=== PATIENT | female | born 1980 | race Two or more races ===

== ENCOUNTER 2017-08-18 20:43 | Emergency (ER) | payer BC, MEDICAID ==
[2016-09-06 10:01] VITALS: Ht 152.4 cm; Wt 97.5 kg
[~2017-08-18] VITALS: Ht 152.4 cm; Wt 97.5 kg
[~2017-08-18 20:43] MED LIST: ACET-1718 PO; AZIT500T47 PO; CALC-748 PO; CEP250 PO; CIPR-344 PO; DIV500ER PO; HYDR-3503 PO; IBUP800T37 PO; KET10 PO; LEVE100047 PO; LEVE750T51 PO; LEVE750T74 PO; LOR5 PO; LOR5/325 PO; METR-1 PO; NITR-105 PO; ONDA4TAB PO; ONDA4TAB97 PO; PER PO; PHEN240S3 PO; PREN1COM5 PO; VAL250
--- NOTE | 2017-08-18 20:59 | ER Report ---
History and Physical Time Seen By MD: 20:59 HPI/ROS CHIEF COMPLAINT: Shortness of breath, dizziness HISTORY OF PRESENT ILLNESS: 37-year-old otherwise healthy female denies past medical history including hypercholesterolemia and smoking prior heart attack or stroke. Denies family history. She is here for chest pain and dyspnea 2 days associated with left leg pain without swelling. No recent trauma or surgery no estrogen replacement pills. No prior blood clots. She is also complaining of dizziness worse when she sits up or gets up out of bed and dry mouth has not noticed dark urine. REVIEW OF SYSTEMS: Constitutional: No fever, no chills. Eyes: No discharge. ENT: No sore throat. Cardiovascular: No palpitations Respiratory: No cough, no shortness of breath. Gastrointestinal: No abdominal pain, no vomiting. Genitourinary: No hematuria. Musculoskeletal: No back pain. Skin: No rashes. Neurological: No headache. Allergies: Coded Allergies: No Known Drug Allergies (Unverified , 07/14/16) Home Meds Active Scripts Oseltamivir Phosphate (TAMIFLU) 75 Mg Cap, 75 MG PO BID, #10 CAP 0 Refills Prov:SAMMY HAYES MD 08/18/17 Ibuprofen (IBUPROFEN) 800 Mg Tablet, 1 TAB PO Q8H, #30 TAB Take with food every 8 hours. Prov:PARMINDER ACHARYA MD 09/07/16 Reported Medications Levetiracetam (KEPPRA) 1,000 Mg Tablet, 1250 MG PO BID, TAB 09/05/16 Calcium/Vit B12/Fa/Pyridoxine (FOLIC ACID-VIT B6-VIT B12 TAB) 1 Each Tablet, 1 EACH PO QDAY 07/14/16 Levetiracetam (KEPPRA) 750 Mg Tablet, 1000 MG PO QDAY, TAB 07/14/16 Discontinued Reported Medications Prenat Vit Comb.10/Iron/Fa/Dha (VITAFOL-OB+DHA COMBO PACK) 1 Each Combo..pkg, 1 EACH PO 07/14/16 Discontinued Scripts Acetaminophen With Codeine # 3 (ACETAMINOPHEN-COD #3 TABLET) 1 Each Tablet, 1-2 EACH PO Q4H Y for PAIN, #30 TAB TAKE 1-2 TABLETS NEEDED FOR PAIN - NO CLOSER THAN EVERY 4 HOURS Prov:PARMINDER ACHARYA MD 09/07/16 Hx Smoking: No Smoking Status: Never Smoker Exposure to Second Hand Smoke?: Yes Hx Substance Use Disorder: No Hx Alcohol Use: Yes (COUPLE GLASSES A WINE 2 TIMES A MONTH) Constitutional Vital Sign - Last 24 Hours 08/18/17 08/18/17 08/18/17 08/18/17 21:02 21:13 21:14 21:28 Temp 98.3 Pulse 98 97 91 Resp 18 28 25 B/P (MAP) 137/88 127/89 (102) Pulse Ox 93 93 93 O2 Delivery Room Air 08/18/17 08/18/17 08/18/17 08/18/17 21:43 21:58 22:03 22:18 Pulse 98 99 94 102 Resp 26 15 19 Pulse Ox 92 95 93 08/18/17 08/18/17 08/18/17 08/18/17 22:22 22:33 22:48 23:00 Pulse 91 87 Resp 24 19 B/P (MAP) 121/76 (91) 130/70 (90) Pulse Ox 93 92 08/18/17 23:03 Pulse 86 Resp 14 Pulse Ox 95 Physical Exam General Appearance: The patient is alert, has no immediate need for airway protection and no signs of toxicity. Appears mildly drowsy Eyes: Pupils equal and round no pallor or injection. ENT, Mouth: Mucous membranes are dry Respiratory: There are no retractions, lungs are clear to auscultation. Cardiovascular: Regular rate and rhythm. No murmurs gallops or rubs she is slightly tachycardic Gastrointestinal: Abdomen is soft and non tender, no masses, bowel sounds normal. Neurological: Normal, dizziness upon sitting up for exam Skin: Warm and dry, no rashes. Musculoskeletal: Neck is supple non tender. Extremities are nontender, nonswollen and have full range of motion. No edema, symmetrical calf bilaterally to visualization, positive Homans sign left side only DIFFERENTIAL DIAGNOSIS: After history and physical exam differential diagnosis was considered for PE, DVT, ACS, influenza-like illness, pneumonia Medical Decision Making Data Points Result Diagram: 08/18/17210908/18/172109 Laboratory Hematology Test 08/18/17 00:00 08/18/17 21:10 08/18/17 21:18 08/18/17 23:44 Urine Color Yellow Urine Clarity Clear Urine pH 5.0 pH (4.8-9.5) Urine Specific [place] 1.018 Urine Protein Negative mg/dL (NEGATIVE) Urine Glucose (UA) Negative mg/dL (NEGATIVE) Urine Ketones Negative mg/dL (NEGATIVE) Urine Blood Negative (NEGATIVE) Urine Nitrite Negative (NEGATIVE) Urine Bilirubin Negative (NEGATIVE) Urine Urobilinogen Negative mg/dL (0.2-1.9) Urine Leukocyte Esterase Small (NEGATIVE) Urine RBC 1 /HPF (0-2/HPF) Urine WBC 6 /HPF (0-5/HPF) Urine Squamous Epithelial Cells Many /LPF (</=FEW) Urine Bacteria Negative /HPF (NONE-FEW) Urine Mucus None /HPF (NONE-FEW) Human Chorionic Gonadotropin, Qual Negative (NEGATIVE) Red Blood Count 5.00 M/uL (4.17-5.56) Mean Corpuscular Volume 84.3 fL (80.0-96.0) Mean Corpuscular Hemoglobin 29.0 pg (26.0-33.0) Mean Corpuscular Hemoglobin Concent 34.4 g/dL (32.0-36.0) Red Cell Distribution Width 12.8 % (11.5-14.5) Mean Platelet Volume 7.2 fL (7.2-11.1) Neutrophils (%) (Auto) 46.8 % (39.4-72.5) Lymphocytes (%) (Auto) 39.5 % (17.6-49.6) Monocytes (%) (Auto) 8.4 % (4.1-12.4) Eosinophils (%) (Auto) 4.3 % (0.4-6.7) Basophils (%) (Auto) 1.0 % (0.3-1.4) Nucleated RBC Relative Count (auto) 0.1 /100WBC Neutrophils # (Auto) 4.3 K/uL (2.0-7.4) Lymphocytes # (Auto) 3.6 K/uL (1.3-3.6) Monocytes # (Auto) 0.8 K/uL (0.3-1.0) Eosinophils # (Auto) 0.4 K/uL (0.0-0.5) Basophils # (Auto) 0.1 K/uL (0.0-0.1) Nucleated RBC Absolute Count (auto) 0.01 K/uL D-Dimer Quantitative (PE/DVT) < 0.27 ug/ml (0-0.50) Sodium Level 137 mmol/L (137-145) Potassium Level 3.9 mmol/L (3.5-5.0) Chloride Level 102 mmol/L (98-107) Carbon Dioxide Level 23 mmol/L (22-31) Blood Urea Nitrogen 19 mg/dl (7-18) Creatinine 1.00 mg/dl (0.52-1.04) Glomerular Filtration Rate Calc > 60.0 Random Glucose 102 mg/dl (75-110) Calcium Level 9.1 mg/dl (8.4-10.2) Total Bilirubin 0.4 mg/dl (0.2-1.3) Aspartate Amino Transf (AST/SGOT) 63 U/L (0-35) Alanine Aminotransferase (ALT/SGPT) 101 U/L (0-56) Alkaline Phosphatase 97 U/L (0-126) B-Type Natriuretic Peptide 6 pg/ml (0-100) Total Protein 7.8 gm/dl (6.3-8.2) Albumin 4.1 g/dl (3.5-5.0) Influenza Virus Type A (PCR) Negative (NEGATIVE) Influenza Virus Type B (PCR) Negative (NEGATIVE) Group A Streptococcus Screen Negative (NEGATIVE) Troponin I < 0.012 ng/ml Chemistry Test 08/18/17 00:00 08/18/17 21:10 08/18/17 21:18 08/18/17 23:44 Urine Color Yellow Urine Clarity Clear Urine pH 5.0 pH (4.8-9.5) Urine Specific [place] 1.018 Urine Protein Negative mg/dL (NEGATIVE) Urine Glucose (UA) Negative mg/dL (NEGATIVE) Urine Ketones Negative mg/dL (NEGATIVE) Urine Blood Negative (NEGATIVE) Urine Nitrite Negative (NEGATIVE) Urine Bilirubin Negative (NEGATIVE) Urine Urobilinogen Negative mg/dL (0.2-1.9) Urine Leukocyte Esterase Small (NEGATIVE) Urine RBC 1 /HPF (0-2/HPF) Urine WBC 6 /HPF (0-5/HPF) Urine Squamous Epithelial Cells Many /LPF (</=FEW) Urine Bacteria Negative /HPF (NONE-FEW) Urine Mucus None /HPF (NONE-FEW) Human Chorionic Gonadotropin, Qual Negative (NEGATIVE) White Blood Count 9.2 k/uL (4.5-11.0) Red Blood Count 5.00 M/uL (4.17-5.56) Hemoglobin 14.5 g/dL (12.0-16.0) Hematocrit 42.1 % (34.0-47.0) Mean Corpuscular Volume 84.3 fL (80.0-96.0) Mean Corpuscular Hemoglobin 29.0 pg (26.0-33.0) Mean Corpuscular Hemoglobin Concent 34.4 g/dL (32.0-36.0) Red Cell Distribution Width 12.8 % (11.5-14.5) Platelet Count 272 K/uL (150-450) Mean Platelet Volume 7.2 fL (7.2-11.1) Neutrophils (%) (Auto) 46.8 % (39.4-72.5) Lymphocytes (%) (Auto) 39.5 % (17.6-49.6) Monocytes (%) (Auto) 8.4 % (4.1-12.4) Eosinophils (%) (Auto) 4.3 % (0.4-6.7) Basophils (%) (Auto) 1.0 % (0.3-1.4) Nucleated RBC Relative Count (auto) 0.1 /100WBC Neutrophils # (Auto) 4.3 K/uL (2.0-7.4) Lymphocytes # (Auto) 3.6 K/uL (1.3-3.6) Monocytes # (Auto) 0.8 K/uL (0.3-1.0) Eosinophils # (Auto) 0.4 K/uL (0.0-0.5) Basophils # (Auto) 0.1 K/uL (0.0-0.1) Nucleated RBC Absolute Count (auto) 0.01 K/uL D-Dimer Quantitative (PE/DVT) < 0.27 ug/ml (0-0.50) Glomerular Filtration Rate Calc > 60.0 Calcium Level 9.1 mg/dl (8.4-10.2) Total Bilirubin 0.4 mg/dl (0.2-1.3) Aspartate Amino Transf (AST/SGOT) 63 U/L (0-35) Alanine Aminotransferase (ALT/SGPT) 101 U/L (0-56) Alkaline Phosphatase 97 U/L (0-126) B-Type Natriuretic Peptide 6 pg/ml (0-100) Total Protein 7.8 gm/dl (6.3-8.2) Albumin 4.1 g/dl (3.5-5.0) Influenza Virus Type A (PCR) Negative (NEGATIVE) Influenza Virus Type B (PCR) Negative (NEGATIVE) Group A Streptococcus Screen Negative (NEGATIVE) Troponin I < 0.012 ng/ml Coagulation Test 08/18/17 21:10 D-Dimer Quantitative (PE/DVT) < 0.27 ug/ml Urinalysis Test 08/18/17 00:00 Urine Color Yellow Urine Clarity Clear Urine pH 5.0 pH (4.8-9.5) Urine Specific [place] 1.018 Urine Protein Negative mg/dL (NEGATIVE) Urine Glucose (UA) Negative mg/dL (NEGATIVE) Urine Ketones Negative mg/dL (NEGATIVE) Urine Blood Negative (NEGATIVE) Urine Nitrite Negative (NEGATIVE) Urine Bilirubin Negative (NEGATIVE) Urine Urobilinogen Negative mg/dL (0.2-1.9) Urine Leukocyte Esterase Small (NEGATIVE) Urine RBC 1 /HPF (0-2/HPF) Urine WBC 6 /HPF (0-5/HPF) Urine Squamous Epithelial Cells Many /LPF (</=FEW) Urine Bacteria Negative /HPF (NONE-FEW) Urine Mucus None /HPF (NONE-FEW) EKG/Imaging EKG Interpretation 08/18/2017 9:19:58 pm EKG was reviewed immediately by me at the bedside and seemed to be nonischemic and no signs of STEMI. Sinus tachycardia. ED Course/Re-evaluation ED Course Plan of care agreed-upon prior to orders placed. All results were discussed, Homecare supportive care reasons to return and follow-up care were discussed all questions answered and understood. Re-evaluation 08/18/2017 11:42:45 pm patient doing fine no concerns or complaints pulmonary results were discussed and need for 2nd troponin was discussed and agreed upon possibility of influenza-like illness or alternative fluids strain was discussed despite her negative flu a and B screen here. BReast feeding implications and Tamiflu benefits and risks were discussed. Decision to Disposition Date: Aug 18, 2017 Decision to Disposition Time: 00:21 Depart Departure Latest Vital Signs Vital Signs Date Time Temp Pulse Resp B/P (MAP) Pulse Ox O2 Delivery O2 Flow Rate FiO2 08/18/17 23:03 86 14 95 08/18/17 23:00 130/70 (90) 08/18/17 21:02 98.3 Room Air Impression: Primary Impression: Chest pain Additional Impression: Influenza-like illness Condition: Improved Disposition: HOME OR SELF-CARE Referrals: LETICIA SANCHEZ MD (PCP) New Scripts Oseltamivir Phosphate (TAMIFLU) 75 Mg Cap 75 MG PO BID, #10 CAP 0 Refills Prov: SAMMY HAYES MD 08/18/17 Patient Instructions: Viral Syndrome (ED) Problem Qualifiers SAMMY HAYES MD Aug 18, 2017 20:59
[2017-08-18] MEDS ORDERED: NS(*) 0.9% 1000 ML BAG 1,000 ML IV ONE (21:15)
[2017-08-18] MEDS ORDERED: ASPIRIN 81 MG CHEW PO ONE (21:15)
[2017-08-18 21:28] LABS: PLATELET COUNT, AUTOMATED 272 K/uL (150-450)
--- NOTE | 2017-08-18 21:36 | EKG ---
FACILITY: [facility] PATIENT NAME: MAX LYLES : [id number] MR: [id number] V: [id number] EXAM DATE: ORDERING PHYSICIAN: SAMMY HAYES TECHNOLOGIST: Candido Malave Reason : Blood Pressure : / mmHG Vent. Rate : 099 BPM Atrial Rate : 099 BPM P-R Int : 154 ms QRS Dur : 084 ms QT Int : 356 ms P-R-T Axes : 052 055 036 degrees QTc Int : 456 ms Normal sinus rhythm borderline tachycardic T inversion consistent with ant/sep ischemia vs normal variant No previous ECGs available Confirmed by JENNIFER BOTELLO ([id number]) on 08/19/2017 6:26:44 AM Referred By: Confirmed By:JENNIFER BOTELLO
--- NOTE | 2017-08-18 21:57 | RADIOLOGY IMAGING REPORT ---
FACILITY: [facility] - [place] PATIENT NAME: Diana Castro : 1980 MR: [id number] V: [id number] EXAM DATE: ORDERING PHYSICIAN: SAMMY HAYES TECHNOLOGIST: Location: [facility] [place] Patient: Diana Castro : 1980 Visit/Account:[id number] Date of Sevice: 08/18/2017 EXAMINATION: Portable AP Chest HISTORY: Wheezing. Dyspnea. Evaluate for edema. COMPARISON: 07/11/2012. FINDINGS: The lungs are clear. No focal consolidation or pleural effusion. No evidence of pulmonary edema. No pneumothorax. Normal cardiomediastinal silhouette, with normal heart size and pulmonary vascularity. Visualized osseous structures are unremarkable. IMPRESSION: Negative chest. Report Dictated By: Eliud Vivas MD at 08/18/2017 9:49 PM Report E-Signed By: Eliud Vivas MD at 08/18/2017 9:53 PM WSN:[id number]
[2017-08-18] MEDS ORDERED: OSE75 PO (23:44)
[2017-08-19 00:34] VITALS: BP 115/75
== END 2017-08-19 00:37 | disposition home or self-care (01) ==
LOC: ER 21:06
DX: R07.89 Other chest pain (principal)
CPT/HCPCS: 71045; 81001; 83880; 84484; 84703; 85025; 85379; 87081; 87502; 87880; 93005; 99284; J7030; 82040; 82247; 82310; 82374; 82435; 82565; 82947; 84075; 84132; 84155; 84295; 84450; 84460; 84520

== ENCOUNTER 2017-10-25 10:46 | Emergency (ER) | payer MEDICAID ==
[2016-09-06 10:01] VITALS: Wt 97.5 kg
[~2017-10-25 10:46] MED LIST changes: +OSE75 PO
[2017-10-25] MEDS ORDERED: NS(*) 0.9% 1000 ML BAG 1,000 ML IV ONE (11:08)
--- NOTE | 2017-10-25 11:14 | ER Report ---
History and Physical Time Seen By MD: 11:13 Hx. of Stated Complaint: RIGHT SIDED CHEST PAIN, RIGHT SIDED RT PAIN, SOB, STARTED YESTERDAY AND GOT REALLY BAD LAST NIGHT. FEELS FUNNY ON THE RIGHT SIDE, FEELS WEAKER THYAN NORMAL HPI/ROS 37-year-old female ambulatory to the ER states when she is resting on the couch last night had a sudden onset of right-sided weakness acute left-sided headache lasted about 1 minute dissipated after this she started having right-sided chest pain and shortness of breath. This lasted about 10 minutes tried symptoms and massage that did not change her pain at all at never had pain like this before and only history is seizure disorder which she is on Keppra for anything compliant with medication Allergies: Coded Allergies: No Known Drug Allergies (Unverified , 10/25/17) Home Meds Active Scripts Famotidine (PEPCID) 20 Mg Tablet, 20 MG PO QDAY, #30 TAB Prov:ENMANUEL DURHAM 10/25/17 Cephalexin 500 Mg Tab (KEFLEX 500 MG TAB) 500 Mg Tablet, 500 MG PO Q6H, #28 TAB Prov:ENMANUEL DURHAM 10/25/17 Ibuprofen (IBUPROFEN) 800 Mg Tablet, 1 TAB PO Q8H, #30 TAB Take with food every 8 hours. Prov:PARMINDER ACHARYA MD 09/07/16 Reported Medications Levetiracetam (KEPPRA) 1,000 Mg Tablet, 1250 MG PO BID, TAB 09/05/16 Levetiracetam (KEPPRA) 750 Mg Tablet, 1000 MG PO QDAY, TAB 07/14/16 Discontinued Reported Medications Calcium/Vit B12/Fa/Pyridoxine (FOLIC ACID-VIT B6-VIT B12 TAB) 1 Each Tablet, 1 EACH PO QDAY 07/14/16 Discontinued Scripts Oseltamivir Phosphate (TAMIFLU) 75 Mg Cap, 75 MG PO BID, #10 CAP 0 Refills Prov:SAMMY HAYES MD 08/18/17 Hx Smoking: No Smoking Status: Never Smoker Exposure to Second Hand Smoke?: Yes Hx Substance Use Disorder: No Hx Alcohol Use: Yes (COUPLE GLASSES A WINE 2 TIMES A MONTH) Constitutional Vital Sign - Last 24 Hours 10/25/17 10/25/17 10/25/17 10/25/17 10:46 10:50 10:54 11:00 Temp 98.1 Pulse ??? 110 Resp 18 B/P (MAP) 119/99 119/99 (106) 122/87 (99) Pulse Ox 94 O2 Delivery Room Air 10/25/17 10/25/17 10/25/17 10/25/17 11:01 11:16 11:30 11:31 Pulse 111 99 93 Resp 12 10 B/P (MAP) ???/??? (1665) Pulse Ox 94 93 93 10/25/17 10/25/17 10/25/17 10/25/17 11:36 11:51 12:00 12:06 Pulse 87 84 93 B/P (MAP) ???/??? (1665) Pulse Ox 94 94 91 10/25/17 10/25/17 10/25/17 10/25/17 12:11 12:26 12:30 12:41 Pulse 82 85 77 Resp 17 17 23 B/P (MAP) ???/??? (1665) Pulse Ox 93 96 99 10/25/17 12:56 Pulse 77 Resp 12 Pulse Ox 96 Intake and Output 10/25/17 10/25/17 10/26/17 15:00 23:00 07:00 Intake Total 1000 ml Balance 1000 ml Physical Exam 37-year-old female alert and oriented no acute distress head normocephalic/ atraumatic tympanic membranes are non-reddened throat is non-reddened neck is supple no JVD heart rate is tachycardic no murmurs rubs and gallops lungs decreased bilateral bases abdomen is obese bowel sounds 4 quadrants neurologically grossly intact 2-12 Medical Decision Making Data Points Result Diagram: 10/25/17 1126 10/25/17 1126 Laboratory Hematology Test 10/25/17 11:06 10/25/17 11:26 Urine Color Yellow Urine Clarity Slightly-cloudy Urine pH 5.0 pH (4.8-9.5) Urine Specific [place] 1.023 Urine Protein Negative mg/dL (NEGATIVE) Urine Glucose (UA) Negative mg/dL (NEGATIVE) Urine Ketones Negative mg/dL (NEGATIVE) Urine Blood Negative (NEGATIVE) Urine Nitrite Negative (NEGATIVE) Urine Bilirubin Negative (NEGATIVE) Urine Urobilinogen Negative mg/dL (0.2-1.9) Urine Leukocyte Esterase Moderate (NEGATIVE) Urine RBC None /HPF (0-2/HPF) Urine WBC 7 /HPF (0-5/HPF) Urine Squamous Epithelial Cells Many /LPF (</=FEW) Urine Bacteria Few /HPF (NONE-FEW) Urine Mucus Few /HPF (NONE-FEW) Urine Opiates Screen Negative Urine Barbiturates Screen Negative Ur Tricyclic Antidepressants Screen Negative Urine Phencyclidine Screen Negative Urine Amphetamines Screen Negative Urine Benzodiazepines Screen Negative Urine Cocaine Screen Negative Urine Cannabinoids Screen Negative Red Blood Count 5.16 M/uL (4.17-5.56) Mean Corpuscular Volume 83.7 fL (80.0-96.0) Mean Corpuscular Hemoglobin 28.8 pg (26.0-33.0) Mean Corpuscular Hemoglobin Concent 34.4 g/dL (32.0-36.0) Red Cell Distribution Width 14.0 % (11.5-14.5) Mean Platelet Volume 6.9 fL (7.2-11.1) Neutrophils (%) (Auto) 52.1 % (39.4-72.5) Lymphocytes (%) (Auto) 35.7 % (17.6-49.6) Monocytes (%) (Auto) 6.6 % (4.1-12.4) Eosinophils (%) (Auto) 4.8 % (0.4-6.7) Basophils (%) (Auto) 0.8 % (0.3-1.4) Nucleated RBC Relative Count (auto) 0.1 /100WBC Neutrophils # (Auto) 3.5 K/uL (2.0-7.4) Lymphocytes # (Auto) 2.4 K/uL (1.3-3.6) Monocytes # (Auto) 0.4 K/uL (0.3-1.0) Eosinophils # (Auto) 0.3 K/uL (0.0-0.5) Basophils # (Auto) 0.1 K/uL (0.0-0.1) Nucleated RBC Absolute Count (auto) 0.01 K/uL D-Dimer Quantitative (PE/DVT) < 0.27 ug/ml (0-0.50) Sodium Level 139 mmol/L (137-145) Potassium Level 3.4 mmol/L (3.5-5.0) Chloride Level 103 mmol/L (98-107) Carbon Dioxide Level 20 mmol/L (22-31) Blood Urea Nitrogen 15 mg/dl (7-18) Creatinine 0.70 mg/dl (0.52-1.04) Glomerular Filtration Rate Calc > 60.0 Random Glucose 147 mg/dl (75-110) Calcium Level 9.0 mg/dl (8.4-10.2) Magnesium Level 2.1 mg/dl (1.7-2.2) Total Bilirubin 0.6 mg/dl (0.2-1.3) Aspartate Amino Transf (AST/SGOT) 95 U/L (0-35) Alanine Aminotransferase (ALT/SGPT) 119 U/L (0-56) Alkaline Phosphatase 87 U/L (0-126) Troponin I < 0.012 ng/ml Total Protein 8.0 gm/dl (6.3-8.2) Albumin 4.1 g/dl (3.5-5.0) Thyroid Stimulating Hormone (TSH) 2.26 uIU/ml (0.46-4.68) Human Chorionic Gonadotropin, Qual Negative (NEGATIVE) Chemistry Test 10/25/17 11:06 10/25/17 11:26 Urine Color Yellow Urine Clarity Slightly-cloudy Urine pH 5.0 pH (4.8-9.5) Urine Specific [place] 1.023 Urine Protein Negative mg/dL (NEGATIVE) Urine Glucose (UA) Negative mg/dL (NEGATIVE) Urine Ketones Negative mg/dL (NEGATIVE) Urine Blood Negative (NEGATIVE) Urine Nitrite Negative (NEGATIVE) Urine Bilirubin Negative (NEGATIVE) Urine Urobilinogen Negative mg/dL (0.2-1.9) Urine Leukocyte Esterase Moderate (NEGATIVE) Urine RBC None /HPF (0-2/HPF) Urine WBC 7 /HPF (0-5/HPF) Urine Squamous Epithelial Cells Many /LPF (</=FEW) Urine Bacteria Few /HPF (NONE-FEW) Urine Mucus Few /HPF (NONE-FEW) Urine Opiates Screen Negative Urine Barbiturates Screen Negative Ur Tricyclic Antidepressants Screen Negative Urine Phencyclidine Screen Negative Urine Amphetamines Screen Negative Urine Benzodiazepines Screen Negative Urine Cocaine Screen Negative Urine Cannabinoids Screen Negative White Blood Count 6.7 k/uL (4.5-11.0) Red Blood Count 5.16 M/uL (4.17-5.56) Hemoglobin 14.8 g/dL (12.0-16.0) Hematocrit 43.2 % (34.0-47.0) Mean Corpuscular Volume 83.7 fL (80.0-96.0) Mean Corpuscular Hemoglobin 28.8 pg (26.0-33.0) Mean Corpuscular Hemoglobin Concent 34.4 g/dL (32.0-36.0) Red Cell Distribution Width 14.0 % (11.5-14.5) Platelet Count 291 K/uL (150-450) Mean Platelet Volume 6.9 fL (7.2-11.1) Neutrophils (%) (Auto) 52.1 % (39.4-72.5) Lymphocytes (%) (Auto) 35.7 % (17.6-49.6) Monocytes (%) (Auto) 6.6 % (4.1-12.4) Eosinophils (%) (Auto) 4.8 % (0.4-6.7) Basophils (%) (Auto) 0.8 % (0.3-1.4) Nucleated RBC Relative Count (auto) 0.1 /100WBC Neutrophils # (Auto) 3.5 K/uL (2.0-7.4) Lymphocytes # (Auto) 2.4 K/uL (1.3-3.6) Monocytes # (Auto) 0.4 K/uL (0.3-1.0) Eosinophils # (Auto) 0.3 K/uL (0.0-0.5) Basophils # (Auto) 0.1 K/uL (0.0-0.1) Nucleated RBC Absolute Count (auto) 0.01 K/uL D-Dimer Quantitative (PE/DVT) < 0.27 ug/ml (0-0.50) Glomerular Filtration Rate Calc > 60.0 Calcium Level 9.0 mg/dl (8.4-10.2) Magnesium Level 2.1 mg/dl (1.7-2.2) Total Bilirubin 0.6 mg/dl (0.2-1.3) Aspartate Amino Transf (AST/SGOT) 95 U/L (0-35) Alanine Aminotransferase (ALT/SGPT) 119 U/L (0-56) Alkaline Phosphatase 87 U/L (0-126) Troponin I < 0.012 ng/ml Total Protein 8.0 gm/dl (6.3-8.2) Albumin 4.1 g/dl (3.5-5.0) Thyroid Stimulating Hormone (TSH) 2.26 uIU/ml (0.46-4.68) Human Chorionic Gonadotropin, Qual Negative (NEGATIVE) Coagulation Test 10/25/17 11:26 D-Dimer Quantitative (PE/DVT) < 0.27 ug/ml Toxicology Test 10/25/17 11:06 10/25/17 11:26 Urine Opiates Screen Negative Urine Barbiturates Screen Negative Ur Tricyclic Antidepressants Screen Negative Urine Phencyclidine Screen Negative Urine Amphetamines Screen Negative Urine Benzodiazepines Screen Negative Urine Cocaine Screen Negative Urine Cannabinoids Screen Negative Urinalysis Test 10/25/17 11:06 Urine Color Yellow Urine Clarity Slightly-cloudy Urine pH 5.0 pH (4.8-9.5) Urine Specific [place] 1.023 Urine Protein Negative mg/dL (NEGATIVE) Urine Glucose (UA) Negative mg/dL (NEGATIVE) Urine Ketones Negative mg/dL (NEGATIVE) Urine Blood Negative (NEGATIVE) Urine Nitrite Negative (NEGATIVE) Urine Bilirubin Negative (NEGATIVE) Urine Urobilinogen Negative mg/dL (0.2-1.9) Urine Leukocyte Esterase Moderate (NEGATIVE) Urine RBC None /HPF (0-2/HPF) Urine WBC 7 /HPF (0-5/HPF) Urine Squamous Epithelial Cells Many /LPF (</=FEW) Urine Bacteria Few /HPF (NONE-FEW) Urine Mucus Few /HPF (NONE-FEW) ED Course/Re-evaluation Clinical Indication for ER IV: Hydration ED Course Patient was asymptomatic during the course in the emergency room her CT head was negative chest x-ray was read as negative she did have a UTI on culture was sent she did have elevated liver enzymes ultrasound of the liver shows a fatty liver common bile duct within normal range she has had a cholecystectomy will send her home for further follow-up with her physician feel she needs a stress test for her atypical chest pain we'll put her on Pepcid 20 twice a day as well as keflex for her UTI Re-evaluation Main asymptomatic home with family ascription for Pepcid and for Keflex given to patient Decision to Disposition Date: Oct 25, 2017 Decision to Disposition Time: 13:32 Depart Departure Latest Vital Signs Vital Signs Date Time Temp Pulse Resp B/P (MAP) Pulse Ox O2 Delivery O2 Flow Rate FiO2 10/25/17 12:56 77 12 96 10/25/17 12:30 ???/??? (1665) 10/25/17 10:50 98.1 Room Air Impression: Primary Impression: Chest pain Additional Impressions: Elevated liver enzymes UTI (urinary tract infection) Condition: Improved Disposition: HOME OR SELF-CARE Referrals: LETICIA SANCHEZ MD (PCP) 5 Days New Scripts Famotidine (PEPCID) 20 Mg Tablet 20 MG PO QDAY, #30 TAB Prov: ENMANUEL DURHAM 10/25/17 Cephalexin 500 Mg Tab (KEFLEX 500 MG TAB) 500 Mg Tablet 500 MG PO Q6H, #28 TAB Prov: ENMANUEL DURHAM 10/25/17 Patient Instructions: Urinary Tract Infection in Women (DC) Problem Qualifiers ENMANUEL DURHAM Oct 25, 2017 11:14
--- NOTE | 2017-10-25 11:25 | EKG ---
FACILITY: [facility] - [place] PATIENT NAME: MAX LYLES : [id number] MR: [id number] V: [id number] EXAM DATE: ORDERING PHYSICIAN: ENMANUEL DURHAM TECHNOLOGIST: AKASH Test Reason : CP Blood Pressure : / mmHG Vent. Rate : 109 BPM Atrial Rate : 109 BPM P-R Int : 146 ms QRS Dur : 084 ms QT Int : 340 ms P-R-T Axes : 050 049 027 degrees QTc Int : 457 ms Sinus tachycardia Possible Inferior infarct , age undetermined T flattening consistent with ant/sep ischemia vs normal variant When compared with ECG of August: She no longer has ant/sep T inversion, but has flattening Confirmed by JENNIFER BOTELLO ([id number]) on 10/25/2017 4:59:40 PM Referred By: SALOMON Confirmed By:JENNIFER BOTELLO
--- NOTE | 2017-10-25 11:37 | RADIOLOGY IMAGING REPORT ---
FACILITY: [facility] [place] PATIENT NAME: Diana Castro : 1980 MR: [id number] V: [id number] EXAM DATE: ORDERING PHYSICIAN: ENMANUEL DURHAM TECHNOLOGIST: Location: [facility] Patient: Diana Castro : 1980 Visit/Account:[id number] Date of Sevice: 10/25/2017 Study: Single portable view of the chest. Indication: Chest pain. Comparison study: August 18, 2017 Technique: Single AP view of the chest demonstrates no evidence of acute infiltrate. There is no evid ence of pleural effusion or pneumothorax. The mediastinal, cardiac, and diaphragmatic contours are un remarkable. IMPRESSION: Unremarkable chest. Report Dictated By: Von Munoz at 10/25/2017 11:32 AM Report E-Signed By: Von Munoz at 10/25/2017 11:33 AM WSN:[id number]
[2017-10-25 11:42] LABS: PLATELET COUNT, AUTOMATED 291 K/uL (150-450)
--- NOTE | 2017-10-25 12:23 | RADIOLOGY IMAGING REPORT ---
FACILITY: [facility] - [place] PATIENT NAME: Diana Castro : 1980 MR: [id number] V: [id number] EXAM DATE: ORDERING PHYSICIAN: ENMANUEL DURHAM TECHNOLOGIST: Location: [facility] Patient: Diana Castro : 1980 Visit/Account:[id number] Date of Sevice: 10/25/2017 EXAMINATION: CT Head without intravenous contrast HISTORY: Altered level of consciousness. Right-sided weakness. TECHNIQUE: Axial images were obtained from the skull base to the vertex without intravenous contrast . Sagittal and coronal reformatted images are also submitted. One of the following dose optimization techniques was utilized in the performance of this exam: Autom ated exposure control; adjustment of the mA and/or kV according to the patient's size; or use of an i terative reconstruction technique. Specific details can be referenced in the facility's radiology C T exam operational policy. COMPARISON: 07/14/2016. FINDINGS: Brain volume: Normal. Ventricles: Negative. Acute ischemic changes: None. Hemorrhage: None. Masses / edema: None. George-white: Negative. White matter: Negative. Vessels: Negative. Extra-axial: Negative. Calvarium / skull base: Negative. Visualized sinuses / orbits: Negative. IMPRESSION: Normal noncontrast head CT. Report Dictated By: Eldon Huang MD at 10/25/2017 12:15 PM Report E-Signed By: Eldon Huang MD at 10/25/2017 12:19 PM WSN:[id number]
[2017-10-25] MEDS ORDERED: FAMO20TA28 PO (13:04)
[2017-10-25] MEDS ORDERED: CEPH500T7 PO (13:04)
--- NOTE | 2017-10-25 13:17 | RADIOLOGY IMAGING REPORT ---
FACILITY: [facility] - [place] PATIENT NAME: Diana Castro : 1980 MR: [id number] V: [id number] EXAM DATE: ORDERING PHYSICIAN: ENMANUEL DURHAM TECHNOLOGIST: Location: [facility] [place] Patient: Diana Castro : 1980 Visit/Account:[id number] Date of Sevice: 10/25/2017 EXAMINATION: Limited right upper quadrant ultrasound Additional Pertinent history: Elevated liver function tests. COMPARISON STUDIES: CT of abdomen pelvis on 02/24/2016. FINDINGS: Gallbladder: Cholecystectomy. Liver: Liver is upper limits normal for size. Liver is diffusely echogenic without a focal abnormalit y. The liver surface appears smooth. Portal vein is patent. No ascites. Common duct: normal 5.2 mm. Pancreas: No focal abnormality. Right kidney: negative Proximal IVC/Aorta: negative IMPRESSION: Liver is diffusely echogenic consistent with fatty infiltration or chronic disease. No focal abnormal ity. Report Dictated By: Narayan Vásquez at 10/25/2017 1:09 PM Report E-Signed By: Narayan Vásquez at 10/25/2017 1:12 PM WSN:[id number]
== END 2017-10-25 13:20 | disposition home or self-care (01) ==
LOC: ER 10:47
DX: R94.5 Abnormal results of liver function studies (principal); N39.0 Urinary tract infection, site not specified; K76.0 Fatty (change of) liver, not elsewhere classified; R00.0 Tachycardia, unspecified
CPT/HCPCS: 70450; 71045; 76705; 80177; 80305; 81001; 83735; 84443; 84484; 84703; 85025; 85379; 93005; 96360; 99284; J7030; 82040; 82247; 82310; 82374; 82435; 82565; 82947; 84075; 84132; 84155; 84295; 84450; 84460; 84520

== ENCOUNTER 2018-03-09 22:51 | Emergency (ER) | payer MEDICAID ==
[2016-09-06 10:01] VITALS: Wt 99.8 kg
[~2018-03-09 22:51] MED LIST changes: +CEPH500T7 PO; +FAMO20TA28 PO
[2018-03-09] MEDS ORDERED: LOR1 PO (23:07)
[2018-03-09] MEDS ORDERED: LEVE100034 PO (23:07)
[2018-03-09] MEDS ORDERED: NS(*) 0.9% 1000 ML BAG 1,000 ML IV ONE ×2 (23:10→23:45)
[2018-03-09] MEDS ORDERED: KETOROLAC 30 MG/ML VIAL IVP ONE (23:10)
[2018-03-09] MEDS ORDERED: diphenhydrAMINE 50 MG/ML VIAL IVP ONE ×2 (23:10→23:50)
[2018-03-09] MEDS ORDERED: PROMETHAZINE 25 MG/ML 1 ML AMP IVP ONE (23:10)
--- NOTE | 2018-03-09 23:15 | ER Report ---
History and Physical Time Seen By MD: 22:59 Hx. of Stated Complaint: patient states that around 1400 today the patient started experiencing a migraine; pt took a percocet and it did not help; pt states that she is experiencing n/v HPI/ROS CHIEF COMPLAINT: migraine headache HISTORY OF PRESENT ILLNESS: This is a 38 year old female. She had a migraine headache start at about 1400 hours today. She took a percocet and tried to sleep. Slept for a short time. No unable to sleep. Pain mainly on left side of head and extending down left neck into upper back and shoulder area. Having nausea associated with this. Has photophobia and having some flashing lights in vision earlier today. Still with nausea. No fevers or chills. No recent illnesses. No shortness of breath or chest pain. No changes of bowel or bladder. No weakness or numbness. Has history of migraines, but has not had one for quite some time. Has history of seizures as well and takes Keppra. No seizure activity. Allergies: Coded Allergies: No Known Drug Allergies (Unverified , 10/25/17) Home Meds Reported Medications Lorazepam (LORAZEPAM) 1 Mg Tab, 1 MG PO PRN, TAB 03/09/18 Levetiracetam (LEVETIRACETAM) 1,000 Mg Tablet, 1500 MG PO BID, TAB 03/09/18 Discontinued Reported Medications Levetiracetam (KEPPRA) 1,000 Mg Tablet, 1250 MG PO BID, TAB 09/05/16 Levetiracetam (KEPPRA) 750 Mg Tablet, 1000 MG PO QDAY, TAB 07/14/16 Discontinued Scripts Famotidine (PEPCID) 20 Mg Tablet, 20 MG PO QDAY, #30 TAB Prov:ENMANUEL DURHAM APRN-C 10/25/17 Cephalexin 500 Mg Tab (KEFLEX 500 MG TAB) 500 Mg Tablet, 500 MG PO Q6H, #28 TAB Prov:ENMANUEL DURHAM APRN-C 10/25/17 Ibuprofen (IBUPROFEN) 800 Mg Tablet, 1 TAB PO Q8H, #30 TAB Take with food every 8 hours. Prov:PARMINDER ACHARYA MD 09/07/16 Reviewed Nurses Notes: Yes Hx Smoking: No Smoking Status: Never Smoker Exposure to Second Hand Smoke?: Yes Hx Substance Use Disorder: No Hx Alcohol Use: Yes (COUPLE GLASSES A WINE 2 TIMES A MONTH) Constitutional Vital Sign - Last 24 Hours 03/09/18 03/09/18 03/09/18 03/09/18 22:51 22:56 22:56 23:21 Temp 98.0 Pulse ??? 97 93 Resp 17 B/P (MAP) 91/79 (83) 91/79 Pulse Ox 93 90 O2 Delivery Room Air 03/09/18 03/09/18 03/10/18 03/10/18 23:49 23:51 00:21 00:30 Pulse 85 100 B/P (MAP) 113/79 (90) 127/79 (95) 118/79 (92) Pulse Ox 94 97 03/10/18 03/10/18 03/10/18 03/10/18 01:00 01:05 01:10 01:30 Pulse 90 B/P (MAP) 122/80 (94) 121/76 (91) Pulse Ox 95 95 03/10/18 03/10/18 03/10/18 03/10/18 01:40 02:00 02:10 02:15 Pulse 82 80 78 B/P (MAP) 115/76 (89) Pulse Ox 95 99 96 03/10/18 03/10/18 02:30 02:45 Pulse 76 B/P (MAP) 120/75 (90) Pulse Ox 83 Physical Exam General Appearance: The patient is alert. Having some distress due to pain and nausea. Eyes: Pupils are equal, round. Reactive to light. No pallor, injection or icterus. Extraocular movements are intact. ENT: Mucous membranes are moist. Normal oral mucosa. Posterior oropharynx is normal. Normal tympanic membranes and canals. Neck: Supple and non tender. No lymphadenopathy. Respiratory: Lungs are clear to auscultation. Cardiovascular: Regular rate and rhythm. No murmurs, gallops or rubs. Normal capillary refill. Gastrointestinal: Abdomen is soft and non tender. Nondistended. Normal active bowel sounds. Neurological: Alert and oriented x3. No focal neurologic deficits Skin: Warm and dry. Musculoskeletal: Extremities are nontender. Has some pain in the left side of neck into levator scapulae and trapezius muscles. No tenderness in palpation of the cervical, thoracic and lumbar spine. DIFFERENTIAL DIAGNOSIS: After history and physical exam, differential diagnosis was considered for migraine headache. Medical Decision Making Data Points Result Diagram: 03/09/18231903/09/182319 Laboratory Hematology Test 03/09/18 23:20 Red Blood Count 5.73 M/uL (4.17-5.56) Mean Corpuscular Volume 81.3 fL (80.0-96.0) Mean Corpuscular Hemoglobin 27.8 pg (26.0-33.0) Mean Corpuscular Hemoglobin Concent 34.2 g/dL (32.0-36.0) Red Cell Distribution Width 14.4 % (11.5-14.5) Mean Platelet Volume 7.3 fL (7.2-11.1) Neutrophils (%) (Auto) 69.6 % (39.4-72.5) Lymphocytes (%) (Auto) 20.8 % (17.6-49.6) Monocytes (%) (Auto) 6.3 % (4.1-12.4) Eosinophils (%) (Auto) 2.9 % (0.4-6.7) Basophils (%) (Auto) 0.4 % (0.3-1.4) Nucleated RBC Relative Count (auto) 0.0 /100WBC Neutrophils # (Auto) 8.1 K/uL (2.0-7.4) Lymphocytes # (Auto) 2.4 K/uL (1.3-3.6) Monocytes # (Auto) 0.7 K/uL (0.3-1.0) Eosinophils # (Auto) 0.3 K/uL (0.0-0.5) Basophils # (Auto) 0.0 K/uL (0.0-0.1) Nucleated RBC Absolute Count (auto) 0.00 K/uL Erythrocyte Sedimentation Rate 29 mm/HOUR (0-20) Sodium Level 139 mmol/L (137-145) Potassium Level 3.7 mmol/L (3.5-5.0) Chloride Level 102 mmol/L (98-107) Carbon Dioxide Level 27 mmol/L (22-31) Blood Urea Nitrogen 11 mg/dl (7-18) Creatinine 0.70 mg/dl (0.52-1.04) Glomerular Filtration Rate Calc > 60.0 Random Glucose 105 mg/dl (75-110) Calcium Level 9.2 mg/dl (8.4-10.2) Total Bilirubin 0.5 mg/dl (0.2-1.3) Aspartate Amino Transf (AST/SGOT) 76 U/L (0-35) Alanine Aminotransferase (ALT/SGPT) 115 U/L (0-56) Alkaline Phosphatase 84 U/L (0-126) C-Reactive Protein 1.9 mg/dl (<1.0) Total Protein 8.1 g/dl (6.3-8.2) Albumin 4.3 g/dl (3.5-5.0) Chemistry Test 03/09/18 23:20 White Blood Count 11.6 k/uL (4.5-11.0) Red Blood Count 5.73 M/uL (4.17-5.56) Hemoglobin 16.0 g/dL (12.0-16.0) Hematocrit 46.6 % (34.0-47.0) Mean Corpuscular Volume 81.3 fL (80.0-96.0) Mean Corpuscular Hemoglobin 27.8 pg (26.0-33.0) Mean Corpuscular Hemoglobin Concent 34.2 g/dL (32.0-36.0) Red Cell Distribution Width 14.4 % (11.5-14.5) Platelet Count 313 K/uL (150-450) Mean Platelet Volume 7.3 fL (7.2-11.1) Neutrophils (%) (Auto) 69.6 % (39.4-72.5) Lymphocytes (%) (Auto) 20.8 % (17.6-49.6) Monocytes (%) (Auto) 6.3 % (4.1-12.4) Eosinophils (%) (Auto) 2.9 % (0.4-6.7) Basophils (%) (Auto) 0.4 % (0.3-1.4) Nucleated RBC Relative Count (auto) 0.0 /100WBC Neutrophils # (Auto) 8.1 K/uL (2.0-7.4) Lymphocytes # (Auto) 2.4 K/uL (1.3-3.6) Monocytes # (Auto) 0.7 K/uL (0.3-1.0) Eosinophils # (Auto) 0.3 K/uL (0.0-0.5) Basophils # (Auto) 0.0 K/uL (0.0-0.1) Nucleated RBC Absolute Count (auto) 0.00 K/uL Erythrocyte Sedimentation Rate 29 mm/HOUR (0-20) Glomerular Filtration Rate Calc > 60.0 Calcium Level 9.2 mg/dl (8.4-10.2) Total Bilirubin 0.5 mg/dl (0.2-1.3) Aspartate Amino Transf (AST/SGOT) 76 U/L (0-35) Alanine Aminotransferase (ALT/SGPT) 115 U/L (0-56) Alkaline Phosphatase 84 U/L (0-126) C-Reactive Protein 1.9 mg/dl (<1.0) Total Protein 8.1 g/dl (6.3-8.2) Albumin 4.3 g/dl (3.5-5.0) EKG/Imaging Imaging HEAD W/O CONTRAST HISTORY: Headache/migraine. COMPARISON: 10/25/2017 and studies dating to 10/04/2011. TECHNIQUE: Axial images were obtained from the skull base to the vertex without contrast. Sagittal and coronal reformats were performed. One of the following dose optimization techniques was utilized in the performance of this exam: Automated exposure control; adjustment of the mA and/or kV according to the patient's size; or use of an iterative reconstruction technique. Specific details can be referenced in the facility's radiology CT exam operational policy. CONTRAST: None. FINDINGS: Brain: No intracranial hemorrhage, mass, or edema. There is a partially empty sella, which is nonspecific, and can be idiopathic, unchanged. Ventricles and sulci: Sulci are normal. Ventricular size and configuration is normal. Osseous structures: Intact. Paranasal sinuses and mastoids: Normal. Orbits and soft tissues: Normal. IMPRESSION: 1. No acute intracranial abnormality. Report Dictated By: Lubna Rush at 03/10/2018 12:27 AM ED Course/Re-evaluation Clinical Indication for ER IV: Hydration, IV Access ED Course Initial evaluation showed what looked like a severe migraine but no other atypical symptoms. We started with a liter of IV normal saline, and gave Phenerg an 12.5 mg IV, Benadryl 25 mg IV, Toradol 30 mg IV as well. Patient had some improvement of her headache, but started having a dystonic muscle spasms from the Phenergan. We treated with another liter of normal saline, another 25 mg of IV Benadryl, and Ativan 1 mg IV to help with the distress associated with the muscle spasms. Muscle spasms eventually ran their course. Patient is very drowsy but is feeling much better from the headache standpoint. Eventually when she was less drowsy from medications, she was able to walk to the bathroom and she is able to be discharged home at this time. Recommended against taking Phenergan from now on as her muscle spasms were fairly severe as these go. Decision to Disposition Date: Mar 10, 2018 Decision to Disposition Time: 02:59 Depart Departure Latest Vital Signs Vital Signs Date Time Temp Pulse Resp B/P (MAP) Pulse Ox O2 Delivery O2 Flow Rate FiO2 03/10/18 02:45 76 83 03/10/18 02:30 120/75 (90) 03/09/18 22:56 98.0 17 Room Air Impression: Primary Impression: Migraine headache Additional Impression: Acute dystonic reaction due to drugs Condition: Improved Disposition: HOME OR SELF-CARE Referrals: LETICIA SANCHEZ MD (PCP) Patient Instructions: Migraine Headache (ED) Additional Instructions: The reaction to the medicine tonight was most likely due to the IV Phenergan and has resolved. We would recommend not using the medicine in the future. Rest and increase fluid over the next few days. No other changes to medications at this time. Problem Qualifiers Primary Impression: Migraine headache Migraine type: unspecified Status migrainosus presence: without status migrainosus Intractability: not intractable Qualified Codes: G43.909 - Migraine, unspecified, not intractable, without status migrainosus VERNON MICHELLE MD Mar 09, 2018 23:15
[2018-03-09] MEDS ORDERED: LORazepam 2 MG/ML VIAL IVP ONE (23:45)
[2018-03-10 00:21] LABS: PLATELET COUNT, AUTOMATED 313 K/uL (150-450)
--- NOTE | 2018-03-10 00:42 | RADIOLOGY IMAGING REPORT ---
FACILITY: [facility] PATIENT NAME: Diana Castro : 1980 MR: [id number] V: [id number] EXAM DATE: ORDERING PHYSICIAN: VERNON MICHELLE TECHNOLOGIST: Location: [facility] [place] Patient: Diana Castro : 1980 Visit/Account:[id number] Date of Sevice: 03/09/2018 HEAD W/O CONTRAST HISTORY: Headache/migraine. COMPARISON: 10/25/2017 and studies dating to 10/04/2011. TECHNIQUE: Axial images were obtained from the skull base to the vertex without contrast. Sagittal an d coronal reformats were performed. One of the following dose optimization techniques was utilized in the performance of this exam: Autom ated exposure control; adjustment of the mA and/or kV according to the patient's size; or use of an i terative reconstruction technique. Specific details can be referenced in the facility's radiology CT exam operational policy. CONTRAST: None. FINDINGS: Brain: No intracranial hemorrhage, mass, or edema. There is a partially empty sella, which is nonspec ific, and can be idiopathic, unchanged. Ventricles and sulci: Sulci are normal. Ventricular size and configuration is normal. Osseous structures: Intact. Paranasal sinuses and mastoids: Normal. Orbits and soft tissues: Normal. IMPRESSION: 1. No acute intracranial abnormality. Report Dictated By: Lubna Rush at 03/10/2018 12:27 AM Report E-Signed By: Lubna Rush at 03/10/2018 12:40 AM WSN:[id number]
[2018-03-10 02:30] VITALS: BP 120/75
== END 2018-03-10 03:00 | disposition home or self-care (01) ==
LOC: ER 23:00
DX: G43.909 Migraine, unspecified, not intractable, without status migrainosus (principal); G24.09 Other drug induced dystonia
CPT/HCPCS: 70450; 85025; 85651; 86140; 96374; 96375; 99284; J1200; J1885; J2060; J2550; J7030; 82040; 82247; 82310; 82374; 82435; 82565; 82947; 84075; 84132; 84155; 84295; 84450; 84460; 84520

== ENCOUNTER → 2018-04-11 | Outpatient (CLI) | payer MEDICAID ==
[2016-09-06 10:01] VITALS: BMI 40.4
[~2018-04-11] MED LIST changes: +LEVE100034 PO; +LOR1 PO
--- NOTE | 2018-04-11 14:22 | RADIOLOGY IMAGING REPORT ---
FACILITY: PATIENT NAME: Diana Castro : 1980 MR: [id number] V: [id number] EXAM DATE: ORDERING PHYSICIAN: ROSIO ANTOINE TECHNOLOGIST: Location: [facility] Patient: Diana Castro : 1980 Visit/Account:[id number] Date of Sevice: 04/11/2018 BRAIN W/O CONTRAST Comparisons: Head CT scan dated October 04, 2011 Additional pertinent history: None. TECHNIQUE: Multiplanar, multisequence brain MRI was performed without gadolinium contrast. FINDINGS: Sagittal midline structures and craniocervical junction: Negative. Midline shift: None. Ventricles: Negative. Brain parenchyma: Diffusion weighted imaging: Negative. Gradient sequence: Negative. T2 weighted FLAIR images: Negative. Extra-axial spaces: Negative. Dural venous sinuses and major arterial flow voids: Negative. Mastoid air cells and paranasal sinuses: Negative. Surrounding soft tissues and orbits: Negative. Impression: Normal brain MRI without contrast. Report Dictated By: Kevin Logan MD at 04/11/2018 2:15 PM Report E-Signed By: Kevin Logan MD at 04/11/2018 2:19 PM [id number]
== END ==
LOC: MRI 04:22
PROVIDERS: ATTEND Psychiatry & Neurology Neurology
DX: G40.909 Epilepsy, unspecified, not intractable, without status epilepticus (principal)
CPT/HCPCS: 70551

== ENCOUNTER → 2018-05-10 | Outpatient (CLI) | payer MEDICAID ==
[2016-09-06 10:01] VITALS: BMI 40.4
== END ==
LOC: RESP 19:43
PROVIDERS: ATTEND Nurse Practitioner Family
DX: G47.33 Obstructive sleep apnea (adult) (pediatric) (principal); G47.61 Periodic limb movement disorder

== ENCOUNTER → 2018-06-27 | Outpatient (CLI) | payer MEDICAID ==
[2016-09-06 10:01] VITALS: BMI 40.4
== END ==
LOC: RESP 20:53
PROVIDERS: ATTEND Nurse Practitioner Family
DX: G47.33 Obstructive sleep apnea (adult) (pediatric) (principal); G47.36 Sleep related hypoventilation in conditions classified elsewhere; G47.61 Periodic limb movement disorder

== ENCOUNTER 2018-09-12 16:58 | Emergency (ER) | payer MEDICAID ==
[2016-09-06 10:01] VITALS: Wt 103.0 kg
[~2018-09-12 16:58] MED LIST changes: +LEVE750T4 PO; -LEVE750T51 PO
[2018-09-12] MEDS ORDERED: TOPI-23 PO (17:13)
--- NOTE | 2018-09-12 17:19 | ER Report ---
History and Physical Time Seen By MD: 17:10 Hx. of Stated Complaint: CP L UPPER SIDE ONSET 1 HOUR AGO, FEELS DIFFICULTY BREATHING HPI/ROS CHIEF COMPLAINT: Chest pressure HISTORY OF PRESENT ILLNESS: Patient is a 38 year old female presenting to the ED for complaints of chest pressure. States that it feels like her chest is squeezing. Patient also has some shortness of breath with it. Patient had one episode and ignored it because she has this type of chest pressure about once a month. Patient had a second episode of chest pressure soon after the first episode. States it was more intense than the first one. Patient then had a third episode of chest pressure. Third episode was not as intense. Patient came to the ED. REVIEW OF SYSTEMS: Respiratory: No cough, no dyspnea. Cardiovascular: As noted above. Gastrointestinal: No vomiting, no abdominal pain. Musculoskeletal: No back pain. 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 Patient started having seizures when she was 18 months. Reviewed Nurses Notes: Yes Hx Smoking: No Smoking Status: Never Smoker Exposure to Second Hand Smoke?: Yes Hx Substance Use Disorder: No Hx Alcohol Use: No Constitutional Vital Sign - Last 24 Hours 09/12/18 09/12/18 09/12/18 09/12/18 16:58 17:01 17:02 17:13 Temp 98.0 Pulse ??? 82 81 Resp 18 11 B/P (MAP) 121/75 121/75 (90) Pulse Ox 94 95 O2 Delivery Room Air 09/12/18 09/12/18 09/12/18 09/12/18 17:28 17:30 17:43 17:58 Pulse 95 71 81 Resp 11 21 21 B/P (MAP) 137/96 (110) Pulse Ox 95 92 91 09/12/18 09/12/18 09/12/18 09/12/18 18:00 18:13 18:23 18:28 Pulse 98 93 Resp 17 22 B/P (MAP) 105/66 (79) 97/77 (84) Pulse Ox 93 91 09/12/18 09/12/18 09/12/18 09/12/18 18:30 18:43 18:48 19:00 Pulse 79 80 Resp 8 24 B/P (MAP) 111/69 (83) 109/79 (89) Pulse Ox 91 93 09/12/18 09/12/18 09/12/18 09/12/18 19:03 19:18 19:30 19:33 Pulse 91 78 79 Resp 28 10 10 B/P (MAP) ???/??? (1665) Pulse Ox 93 93 92 09/12/18 09/12/18 09/12/18 09/12/18 19:48 20:00 20:03 20:08 Pulse 80 84 87 Resp 23 20 26 B/P (MAP) ???/??? (1665) Pulse Ox 93 92 93 Physical Exam General Appearance: The patient is alert, has no immediate need for airway protection and no current signs of toxicity. Eyes; Pupils equal and round no injection. Respiratory: Chest is non tender, lungs are clear to auscultation. Cardiac: Regular rate and rhythm. Radial and pedal pulses 2+ and equal bilaterally. Gastrointestinal: Abdomen is soft and non tender, no masses, bowel sounds normal. Musculoskeletal: Neck: Neck is supple and non tender. Extremities have full range of motion and are non tender. Skin: No rashes or lesions. DIFFERENTIAL DIAGNOSIS: After history and physical exam differential diagnosis was considered for myocardial ischemia, anxiety, and muscular spasms. Medical Decision Making Data Points Result Diagram: 09/12/18 1704 09/12/18 1704 Laboratory Hematology Test 09/12/18 17:04 09/12/18 18:04 09/12/18 19:06 Red Blood Count 5.86 M/uL (4.17-5.56) Mean Corpuscular Volume 82.2 fL (80.0-96.0) Mean Corpuscular Hemoglobin 28.3 pg (26.0-33.0) Mean Corpuscular Hemoglobin Concent 34.4 g/dL (32.0-36.0) Red Cell Distribution Width 14.5 % (11.5-14.5) Mean Platelet Volume 7.4 fL (7.2-11.1) Neutrophils (%) (Auto) 49.6 % (39.4-72.5) Lymphocytes (%) (Auto) 38.0 % (17.6-49.6) Monocytes (%) (Auto) 7.3 % (4.1-12.4) Eosinophils (%) (Auto) 4.2 % (0.4-6.7) Basophils (%) (Auto) 0.9 % (0.3-1.4) Nucleated RBC Relative Count (auto) 0.1 /100WBC Neutrophils # (Auto) 4.2 K/uL (2.0-7.4) Lymphocytes # (Auto) 3.2 K/uL (1.3-3.6) Monocytes # (Auto) 0.6 K/uL (0.3-1.0) Eosinophils # (Auto) 0.4 K/uL (0.0-0.5) Basophils # (Auto) 0.1 K/uL (0.0-0.1) Nucleated RBC Absolute Count (auto) 0.01 K/uL D-Dimer Quantitative (PE/DVT) 0.37 ug/ml (0-0.50) Sodium Level 142 mmol/L (137-145) Potassium Level 3.7 mmol/L (3.5-5.0) Chloride Level 107 mmol/L (98-107) Carbon Dioxide Level 22 mmol/L (22-31) Blood Urea Nitrogen 19 mg/dl (7-18) Creatinine 0.90 mg/dl (0.52-1.04) Glomerular Filtration Rate Calc > 60.0 Random Glucose 97 mg/dl (75-110) Calcium Level 10.0 mg/dl (8.4-10.2) Total Bilirubin 0.7 mg/dl (0.2-1.3) Aspartate Amino Transf (AST/SGOT) 79 U/L (0-35) Alanine Aminotransferase (ALT/SGPT) 102 U/L (0-56) Alkaline Phosphatase 90 U/L (0-126) Total Protein 9.0 g/dl (6.3-8.2) Albumin 5.0 g/dl (3.5-5.0) Urine Color Jossie Urine Clarity Cloudy Urine pH 6.0 pH (4.8-9.5) Urine Specific [place] 1.028 Urine Protein 30 mg/dL (NEGATIVE) Urine Glucose (UA) Negative mg/dL (NEGATIVE) Urine Ketones Trace mg/dL (NEGATIVE) Urine Blood Negative (NEGATIVE) Urine Nitrite Negative (NEGATIVE) Urine Bilirubin Negative (NEGATIVE) Urine Urobilinogen 4.0 mg/dL (0.2-1.9) Urine Leukocyte Esterase Large (NEGATIVE) Urine RBC 3 /HPF (0-2/HPF) Urine WBC 29 /HPF (0-5/HPF) Urine Squamous Epithelial Cells Many /LPF (</=FEW) Urine Bacteria Few /HPF (NONE-FEW) Urine Mucus Few /HPF (NONE-FEW) Troponin I < 0.012 ng/ml Chemistry Test 09/12/18 17:04 09/12/18 18:04 09/12/18 19:06 White Blood Count 8.5 k/uL (4.5-11.0) Red Blood Count 5.86 M/uL (4.17-5.56) Hemoglobin 16.6 g/dL (12.0-16.0) Hematocrit 48.2 % (34.0-47.0) Mean Corpuscular Volume 82.2 fL (80.0-96.0) Mean Corpuscular Hemoglobin 28.3 pg (26.0-33.0) Mean Corpuscular Hemoglobin Concent 34.4 g/dL (32.0-36.0) Red Cell Distribution Width 14.5 % (11.5-14.5) Platelet Count 375 K/uL (150-450) Mean Platelet Volume 7.4 fL (7.2-11.1) Neutrophils (%) (Auto) 49.6 % (39.4-72.5) Lymphocytes (%) (Auto) 38.0 % (17.6-49.6) Monocytes (%) (Auto) 7.3 % (4.1-12.4) Eosinophils (%) (Auto) 4.2 % (0.4-6.7) Basophils (%) (Auto) 0.9 % (0.3-1.4) Nucleated RBC Relative Count (auto) 0.1 /100WBC Neutrophils # (Auto) 4.2 K/uL (2.0-7.4) Lymphocytes # (Auto) 3.2 K/uL (1.3-3.6) Monocytes # (Auto) 0.6 K/uL (0.3-1.0) Eosinophils # (Auto) 0.4 K/uL (0.0-0.5) Basophils # (Auto) 0.1 K/uL (0.0-0.1) Nucleated RBC Absolute Count (auto) 0.01 K/uL D-Dimer Quantitative (PE/DVT) 0.37 ug/ml (0-0.50) Glomerular Filtration Rate Calc > 60.0 Calcium Level 10.0 mg/dl (8.4-10.2) Total Bilirubin 0.7 mg/dl (0.2-1.3) Aspartate Amino Transf (AST/SGOT) 79 U/L (0-35) Alanine Aminotransferase (ALT/SGPT) 102 U/L (0-56) Alkaline Phosphatase 90 U/L (0-126) Total Protein 9.0 g/dl (6.3-8.2) Albumin 5.0 g/dl (3.5-5.0) Urine Color Jossie Urine Clarity Cloudy Urine pH 6.0 pH (4.8-9.5) Urine Specific [place] 1.028 Urine Protein 30 mg/dL (NEGATIVE) Urine Glucose (UA) Negative mg/dL (NEGATIVE) Urine Ketones Trace mg/dL (NEGATIVE) Urine Blood Negative (NEGATIVE) Urine Nitrite Negative (NEGATIVE) Urine Bilirubin Negative (NEGATIVE) Urine Urobilinogen 4.0 mg/dL (0.2-1.9) Urine Leukocyte Esterase Large (NEGATIVE) Urine RBC 3 /HPF (0-2/HPF) Urine WBC 29 /HPF (0-5/HPF) Urine Squamous Epithelial Cells Many /LPF (</=FEW) Urine Bacteria Few /HPF (NONE-FEW) Urine Mucus Few /HPF (NONE-FEW) Troponin I < 0.012 ng/ml Coagulation Test 09/12/18 17:04 D-Dimer Quantitative (PE/DVT) 0.37 ug/ml Urinalysis Test 09/12/18 18:04 Urine Color Jossie Urine Clarity Cloudy Urine pH 6.0 pH (4.8-9.5) Urine Specific [place] 1.028 Urine Protein 30 mg/dL (NEGATIVE) Urine Glucose (UA) Negative mg/dL (NEGATIVE) Urine Ketones Trace mg/dL (NEGATIVE) Urine Blood Negative (NEGATIVE) Urine Nitrite Negative (NEGATIVE) Urine Bilirubin Negative (NEGATIVE) Urine Urobilinogen 4.0 mg/dL (0.2-1.9) Urine Leukocyte Esterase Large (NEGATIVE) Urine RBC 3 /HPF (0-2/HPF) Urine WBC 29 /HPF (0-5/HPF) Urine Squamous Epithelial Cells Many /LPF (</=FEW) Urine Bacteria Few /HPF (NONE-FEW) Urine Mucus Few /HPF (NONE-FEW) EKG/Imaging EKG Interpretation 12 lead EKG: Rhythm: normal sinus rhythm [place]: normal QRS: normal ST segments: normal Imaging 2 VIEWS CHEST INDICATION: Chest pain. COMPARISON: X-ray examination of the chest October 2017 FINDINGS: Heart size within normal limits. Lungs are clear. There is no pneumothorax or pleural effusion. No acute bony finding IMPRESSION: 1. No acute cardiopulmonary process. Report Dictated By: Tu Fitzgerald MD at 09/12/2018 6:14 PM Report E-Signed By: Tu Fitzgerald MD at 09/12/2018 6:15 PM ED Course/Re-evaluation ED Course Patient was admitted to an ED room and placed in a bed. History and physical were obtained. Differential diagnoses were considered. Labwork, EKG, UA, and Chest X-ray were obtained. Results were discussed with the patient. Second tr oponin was obtained and results were discussed with the patient. Antibiotic was discussed with patient. Patient will follow up with her neurologist on September 22. She will discuss the chest pressure incidents with the neurologist. Patient will be treated for her urinary tract infection. Patient discharged to home. Decision to Disposition Date: Sep 12, 2018 Decision to Disposition Time: 19:59 Depart Departure Latest Vital Signs Vital Signs Date Time Temp Pulse Resp B/P (MAP) Pulse Ox O2 Delivery O2 Flow Rate FiO2 09/12/18 20:08 87 26 93 09/12/18 20:00 ???/??? (1665) 09/12/18 17:01 98.0 Room Air Impression: Primary Impression: Chest pain Additional Impression: UTI (urinary tract infection) Condition: Improved Disposition: HOME OR SELF-CARE Referrals: LETICIA SANCHEZ MD (PCP) New Scripts Nitrofurantoin Monohyd/M-Cryst (MACROBID 100 MG CAPSULE) 100 Mg Capsule 100 MG PO BID, #8 CAPSULE Prov: OMAR GRAYSON 09/12/18 Patient Instructions: Urinary Tract Infection in Women (DC) Additional Instructions: Follow up with your neurologist on September 22. Talk to him about the chest pressure that you have. Please take Macrobid for your UTI. You will take one pill twice a day for 5 days. Please take the full course of antibiotics. Rest and increase fluids over the next couple of days. Problem Qualifiers Primary Impression: Chest pain Chest pain type: other chest pain Qualified Codes: R07.89 - Other chest pain Additional Impression: UTI (urinary tract infection) Urinary tract infection type: acute cystitis Hematuria presence: without hematuria Qualified Codes: N30.00 - Acute cystitis without hematuria OMAR GRAYSON Sep 12, 2018 17:19
[2018-09-12 17:29] LABS: PLATELET COUNT, AUTOMATED 375 K/uL (150-450)
--- NOTE | 2018-09-12 17:54 | EKG ---
FAC[place] [facility] [place] NAME: MAX LYLES : [id number] MR: [id number] V: [id number] EXAM DATE: ORDERING PHYSICIAN: OMAR GRAYSON TECHNOLOGIST: AKASH Test Reason : CP Blood Pressure : / mmHG Vent. Rate : 073 BPM Atrial Rate : 073 BPM P-R Int : 152 ms QRS Dur : 088 ms QT Int : 398 ms P-R-T Axes : 045 023 033 degrees QTc Int : 438 ms Normal sinus rhythm T flattening/inversion consistent with ant/sep ischemia vs normal variant When compared with ECG of 25-OCT-2017 10:51, Vent. rate has decreased BY 36 BPM Confirmed by JENNIFER BOTELLO ([id number]) on 09/12/2018 7:55:49 PM Referred By: KENAN Confirmed By:JENNIFER BOTELLO
--- NOTE | 2018-09-12 18:19 | RADIOLOGY IMAGING REPORT ---
FACILITY: [facility] PATIENT NAME: Diana Castro : 1980 MR: [id number] V: [id number] EXAM DATE: ORDERING PHYSICIAN: OMAR GRAYSON TECHNOLOGIST: [place] [facility] [place] Patient: Diana Castro : 1980 Visit/Account:[id number] Date of Sevice: 09/12/2018 2 VIEWS CHEST INDICATION: Chest pain. COMPARISON: X-ray examination of the chest October 2017 FINDINGS: Heart size within normal limits. Lungs are clear. There is no pneumothorax or pleural effusion. No acute bony finding IMPRESSION: 1. No acute cardiopulmonary process. Report Dictated By: Tu Fitzgerald MD at 09/12/2018 6:14 PM Report E-Signed By: Tu Fitzgerald MD at 09/12/2018 6:15 PM WSN:[id number]
[2018-09-12] MEDS ORDERED: NITR-105 PO (19:58)
[2018-09-12] MEDS ORDERED: NITROFURANTOIN MONO 100 MG PO ONE (20:00)
== END 2018-09-12 20:20 | disposition home or self-care (01) ==
LOC: ER 17:21
DX: N30.00 Acute cystitis without hematuria (principal); R07.89 Other chest pain
CPT/HCPCS: 36415; 71046; 81001; 82040; 82247; 82310; 82374; 82435; 82565; 82947; 84075; 84132; 84155; 84295; 84450; 84460; 84484; 84520; 85025; 85379; 87088; 93005; 99284

== ENCOUNTER 2018-11-20 00:58 | Day surgery (SDC) | payer MEDICAID ==
[2016-09-06 10:01] VITALS: Ht 154.9 cm; Wt 102.5 kg
[~2018-11-20] VITALS: Ht 154.9 cm; Wt 102.5 kg
[2018-11-20] VITALS (7 sets, daily range): BP systolic 110–129; BP diastolic 69–88
[~2018-11-20 00:58] MED LIST changes: +TOPI-23 PO
[2018-11-20] MEDS ORDERED: ROPIVACAINE 0.2% 20 ML VIAL ONE (10:41)
[2018-11-20] MEDS ORDERED: FAMOTIDINE 20 MG TAB PO ONE (11:00)
[2018-11-20] MEDS ORDERED: FAMOTIDINE 20 MG/50 ML PREMIX IVPB ONE (12:00)
[2018-11-20] MEDS ORDERED: LIDOCAINE/SOD BICARB 8.4% SYR ID ONE (12:00)
[2018-11-20] MEDS ORDERED: MIDAZOLAM 2 MG/2 ML VIAL IVP PRN (12:00)
[2018-11-20] MEDS ORDERED: ceFAZolin(*) 2GM/D5W 50ML 50 ML IVPB ONE (12:00)
[2018-11-20] MEDS ORDERED: NORMOSOL R SOLN(*) 1000 ML BAG 1,000 ML IV PRN (12:00)
[2018-11-20 12:21] LABS: PLATELET COUNT, AUTOMATED 320 K/uL (150-450)
[2018-11-20] MEDS ORDERED: ROCURONIUM BROM 10 MG/ML 10 ML ONE (12:22)
[2018-11-20] MEDS ORDERED: LIDOCAINE MPF 1% 5 ML VIAL ONE (12:22)
[2018-11-20] MEDS ORDERED: ONDANSETRON 4 MG/2 ML VIAL ONE (12:22)
[2018-11-20] MEDS ORDERED: PROPOFOL EMUL(*) 10MG/ML 20 ML 20 ML ONE (12:22)
[2018-11-20] MEDS ORDERED: fentaNYL CITR 250 MCG/5 ML AMP ONE (12:22)
[2018-11-20] MEDS ORDERED: DEXAMETHASONE SOD 4 MG/ML VIAL ONE (12:22)
[2018-11-20] MEDS ORDERED: SUGAMMADEX SOD 200 MG/2 ML SDV ONE (12:22)
--- NOTE | 2018-11-20 13:17 | History & Physical ---
History of Present Illness Age of Patient: 38 : 5 Para or TPAL: 3 History of Present Illness 38-year-old who presented to clinic for a chief complaint of undesired fertility. Patient desired to discuss contraception that is permanent at that time. Patient states that her and her had conversations over the past few months since the delivery of the baby 2 years ago about her worsening medical condition and her age and desire that they should not have any more babies. Patient last was 2 years ago. was comp dictated by epilepsy. Patient is seen [facility] for epilepsy and is currently managed with Keppra twice a day and Topamax. Patient states that her are 100% sure of the desire to proceed with tubal ligation and like to discuss further. History Allergies: Coded Allergies: No Known Drug Allergies (Unverified , 10/25/17) Social History: Lives with and 3 children. No noxious habits. Family History: FH: diabetes mellitus BROTHER OR SISTER PGM MGM FH: hypertension PGM MGM Med Rec Home Meds Reported Medications Topiramate (TOPIRAMATE) 25 Mg Tablet, 4 TAB PO QHS 09/12/18 Lorazepam (LORAZEPAM) 1 Mg Tab, 1 MG PO PRN, TAB 03/09/18 Levetiracetam (LEVETIRACETAM) 1,000 Mg Tablet, 1500 MG PO BID, TAB 03/09/18 Review of Systems All Systems Reviewed/Normal: Yes, Except as Noted Constitutional: No Fever, No Weight Loss, No Weight Gain, No Chills, No Night Sweats, No Other Neurological: No Syncope, No Confusion, No Weakness, No Dizziness, No Slurred Speech, No Other Eyes: No Vision Change, No Loss of Vision, No Photophobia, No Other ENT: No Hearing Loss, No Sinus Congestion, No Sore Throat, No Ear Ache, No Tinnitus, No Other Cardiovascular: No Chest Pain, No Palpitations, No Orthostatic Hypotension, No Other Respiratory: No Shortness of Breath, No Cough, No Wheezing, No Other Gastrointestinal: No Nausea, No Vomiting, No Diarrhea, No Dysphagia, No Constipation, No Early Satiety, No Hematemesis, No Hematochezia, No Melena, No Abdominal Pain, No Other Genitourinary: No Dysuria, No Hematuria, No Urinary Incontinence, No Other Musculoskeletal: No Pain, No Sprain, No Strain, No Impaired Mobility, No Other Psychiatric: No Depression, No Anxiety, No Other Exam General Exam Vital Signs Vital Signs Date Time Temp Pulse Resp B/P (MAP) Pulse Ox O2 Delivery O2 Flow Rate FiO2 11/20/18 11:10 97.1 73 14 110/72 (85) 94 Room Air General Apperance: Alert/Awake/No Acute Distress Neuro: No Gross deficits Eyes: Normal Extraocular Movement & Vison, PERRLA ENT: Normal Cardiovascular: Regular Rate and Rhythm Respiratory: No Respiratory Distress, Clear to Auscultation Abdomen: Soft, Non-Tender, Non-Distended : Normal Musculoskeletal: No Weakness/Pain Integumentary: Skin Intact without Lesions or Rash Psychological: Alert & Oriented X3, Appropriate Mood & Affect Medical Decision Making Data Points Result Diagram: 11/20/18 1212 11/20/18 1212 Pre-Admit Course Medical Record Review: Yes VTE Prophylasis: Adult Deep Vein Thrombosis/Pulmonary: No Assessment and Plan 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 Discharge home from same day surgery center. (2) Sterilization consult (3) Sterilization (4) Encounter for sterilization KELLE RICHARD DO November 20, 2018 13:17
[2018-11-20] MEDS ORDERED: fentaNYL CITR 100 MCG/2 ML AMP ONE ×2 (14:18→14:47)
[2018-11-20] MEDS ORDERED: METOCLOPRAMIDE 10 MG/2 ML SDV IVP PRN (14:25)
[2018-11-20] MEDS ORDERED: LR(*) 1000 ML BAG 1,000 ML IV ONE (14:25)
[2018-11-20] MEDS ORDERED: oxyCODON/ACET (*)5/325MG (CII) 1 TAB TAB PO PRN (14:25)
[2018-11-20] MEDS ORDERED: HYDR-653 PO (14:27)
[2018-11-20] MEDS ORDERED: IBUP600T22 PO (14:27)
--- NOTE | 2018-11-20 15:09 | OB/GYN Discharge Summary ---
Discharge Summary Reason for Hosp/Final Diag: (1) Contraception Status: Acute Hospital Course & Plan: 38-year-old female who presented to the hospital for a scheduled labs, tubal ligation. Patient signed the appropriate Medicaid consents and desired to proceed with tubal accordingly. See operative note for details procedure. Patient remained in the recovery room and then discharged to same day surgery and was discharged home accordingly. (2) Sterilization consult (3) Sterilization (4) Encounter for sterilization [place] Vital Signs Vital Signs Date Time Temp Pulse Resp B/P (MAP) Pulse Ox O2 Delivery O2 Flow Rate FiO2 11/20/18 15:00 66 12 99 11/20/18 11:10 97.1 110/72 (85) Room Air Weight (Pounds): 226 Result Diagram: 11/20/18 1212 11/20/18 1212 Condition: Improved Discharge: Home Home Meds Active Scripts Hydrocodone Bit/Acetaminophen (NORCO 5-325 TABLET) 1 Each Tablet, 1 EACH PO Q6H, #15 TAB 0 Refills Prov:KELLE DE LA ROSA DO 11/20/18 Reported Medications Topiramate (TOPIRAMATE) 25 Mg Tablet, 4 TAB PO QHS 09/12/18 Lorazepam (LORAZEPAM) 1 Mg Tab, 1 MG PO PRN, TAB 03/09/18 Levetiracetam (LEVETIRACETAM) 1,000 Mg Tablet, 1500 MG PO BID, TAB 03/09/18 Follow up with: [facility] [phone], Dr. De La Rosa [phone] Follow up in: 2 wks PO Discharge Diet: As Tolerates Discharge Activity: Pelvic Rest Special Instructions: follow up in two weeks with dr. de la rosa. call to make an appointment [phone] KELLE DE LA ROSA DO November 20, 2018 15:09
--- NOTE | 2018-11-20 15:17 | Post Operative Note ---
Operative Note - GRAVITY FLOW IRRIGATOR Operative Day Date: November 20, 2018 Time: 15:09 Physicians Surgeon: Kelle Rios Anesthesia: GET Diagnosis Pre-Op Diagnosis: 38 y /o Desires Permenant contraception. Post-Op Diagnosis: Same Procedure Findings: Normal tubes and ovaries bilaterally. Uterus 8-10 week size. Smooth no abnormality. Physiological cyst on the right ovary. Blanching with bands after procedure. Procedure(s): Laparascopic BTL with falope rings. Specimen Removed:(Maybe N/A): 0 Complications: 0 known Fluids Fluids: 1200 cc LR u/o 80 cc Estimated Blood Loss: minimal Dictated Date OP Note Dictated: November 20, 2018 Time OP Note Dictated: 15:17 KELLE RIOS DO November 20, 2018 15:17
[2018-11-20] MEDS ORDERED: APAP/HYDROCODONE 325/5 TAB ONE (15:23)
--- NOTE | 2018-11-20 15:25 | NUR ---
ATE FOOD. NO NAUSEA. MEDICATED FOR PAIN 01/21. ABD PAIN AND CRAMPING.
[2018-11-20] MEDS ORDERED: PROMETHAZINE 25 MG/ML 1 ML AMP ONE (15:37)
--- NOTE | 2018-11-20 15:39 | NUR ---
REPORTS NAUSEA. MEDICATED WITH PROMETHAZINE AND GIVEN A FLUID BOLUS.
--- NOTE | 2018-11-20 16:04 | NUR ---
AROUSES. UNABLE TO VOID ON BEDPAN. REPORTS NAUSEA IS "SO SO". DROWSY. NO RETCHING. ABLE RETURN TO SLEEP. O2 TURNED DOWN TO 1 LITER NC. ABD DRESSINGS ARE DRY.
--- NOTE | 2018-11-20 16:36 | OPERATIVE REPORT 1 ---
EVENT DATE: November 20, 2018 SURGEON: Arjun Rios DO ANESTHESIOLOGIST: Ayden Ayala MD ANESTHESIA: General endotracheal intubation. PREOPERATIVE DIAGNOSES 1. A 38-year-old 5, para 3. 2. Desires permanent contraception. POSTOPERATIVE DIAGNOSES 1. A 38-year-old 5, para 3. 2. Desires permanent contraception. PROCEDURE PERFORMED Laparoscopic tubal ligation. FINDINGS Normal tubes and ovaries bilaterally. Uterus 8 weeks' size, smooth, with no abnormality. Physiological cyst noted on the right ovary. Blanching on the fallopian tubes mid isthmic segments after procedure. There were two bands used on the right fallopian tube secondary to device malfunction. ESTIMATED BLOOD LOSS Minimal. INTRAVENOUS FLUIDS Lactated Ringer's 1200 mL. URINE OUTPUT 80 mL. COMPLICATIONS None known. CONDITION Stable to Recovery and then to Same Day Surgery. COUNTS Correct for all needles, laps, sponges, and instruments. INDICATIONS AND CONSENT Patient is a 38-year-old 5, para 3, who presented to clinic for a contraception consult. She stated she desired permanent sterility. She signed the appropriate Medicaid consents as well as the appropriate operative consents and did wait her 31-day time prior to undergoing the procedure. DESCRIPTION OF PROCEDURE Patient was taken to the operating room where she underwent general endotracheal intubation. She was then placed in the dorsal lithotomy position and then prepped and draped in the usual sterile manner. A sterile speculum was placed in the vagina. Cervix was visualized and grasped with ringed forceps. Uterus sounded to 9 cm. A KIT uterine manipulator was placed inside the cervix without any difficulty. The speculum was removed. Surgeon's gloves were changed. Attention was turned to the abdomen. 10 mL of 0.2% ropivacaine were then used for anesthesia at the umbilicus. Pneumoperitoneum was achieved with a Veress trocar. Once pneumoperitoneum was achieved, a 5 mm incision was then used to apply the 5 mm Visiport trocar under direct laparoscopic visualization. Patient was placed in Trendelenburg position. The area of entry was inspected without any injury noted. An 8 mm trocar was inserted two fingerbreadths above the pubic symphysis at midline, which was done under direct laparoscopic visualization. Once that was placed, pictures were taken of the uterus. The Falope ring applicator was then used to grasp the right fallopian tube in the mid isthmic region. The device was deployed, and it was noted there were two rings that were deployed over the fallopian tube. Attention was then turned to the left fallopian tube. The Falope ring applicator was again used, this time with the fallopian tube being torn, but there was one ring that was applied across the fallopian tube with blanching noted. At this point with blanching noted on both fallopian tubes, the patient was then placed out of Trendelenburg, and the 8 mm trocar was removed under direct laparoscopic visualization with hemostasis noted. The patient then had the 5 mm trocar released after pneumoperitoneum was gone. The patient then had the incisions closed with a 4-0 Monocryl, and Dermabond was placed over the incisions. The patient was awoken and transferred to the recovery room in stable condition. Prior to awakening, the patient had the KIT uterine manipulator removed from the cervix. The patient was then awoken and transferred to the recovery room in stable condition. JUAN
[2018-11-20] MEDS ORDERED: IBUPROFEN 800 MG TAB PO SCH (17:00)
== END 2018-11-20 15:15 | disposition home or self-care (01) ==
LOC: OR 00:58
PROVIDERS: ATTEND Student in an Organized Health Care Education/Training Program
DX: Z30.2 Encounter for sterilization (principal); G40.909 Epilepsy, unspecified, not intractable, without status epilepticus
CPT/HCPCS: 58671; 84703; 85025; J1100; J2001; J2250; J2405; J2550; J2704; J2795; J3010; 82040; 82247; 82310; 82374; 82435; 82565; 82947; 84075; 84132; 84155; 84295; 84450; 84460; 84520; J0690